=== PATIENT | female | born 1940 | race Caucasian/White ===

== ENCOUNTER 2023-12-06 14:47 | Emergency (ER) | payer MEDICARE, OTHER, SELFPAY ==
[2023-12-06 14:51] VITALS: BP 185/95
--- NOTE | 2023-12-06 16:49 | ED.GENMED ---
History of Present Illness
<Monika Dawkins PA-C - Last Filed: 12/06/23 18:34>
General
Chief Complaint: Musculo-Skeletal Complaint
Source: patient
Exam Limitations: none
Time Seen by Provider: 12/06/23 14:58
Nursing documentation reviewed up to this point in time: agreed with
History of Present Illness
History of Present Illness:
Patient is a 83-year-old female presenting to the emergency department for evaluation of right shoulder pain following mechanical fall earlier this morning. Patient states that she was walking into her garage this morning when her flip-flop got
stuck on the step and she tripped and fell striking her right shoulder on the ground. She denies any head strike or associated loss of consciousness. Patient states she did have some pain in her right shoulder which improved following 3 ibuprofen.
She was able to go to work but states that throughout the day the pain in her right shoulder lingered especially with arm movements. She came to the emergency department for further evaluation.
Patient denies any other injury sustained in the fall. No headache or neck pain. Patient denies any numbness/tingling in right upper extremity.
Past History
<Monika Dawkins PA-C - Last Filed: 12/06/23 18:34>
Past History
ED Past Medical History: None
Social History
Tobacco: Non-smoker
Living: with family
Employment: Employed
Review of Systems
<Monika Dawkins PA-C - Last Filed: 12/06/23 18:34>
Review of Systems
Allergies reviewed?: Yes
All Other Systems: ROS reviewed and negative except as documented in HPI and ROS
Phy Exam
<Monika Dawkins PA-C - Last Filed: 12/06/23 18:34>
Physical Exam
Physical Exam:
Vitals: Hypertensive, otherwise vital signs stable. Afebrile
General: Patient is well appearing, no acute distress. Nontoxic appearing
Skin: Warm and dry, no rashes or lesions
Head: Normocephalic, atraumatic
Throat: Protecting airway
Neck: Normal ROM, no cervical spine tenderness, no meningismus
Cardiac: Regular rate and rhythm, no murmurs.
Pulm: Normal respiratory effort, no wheezes, rales, rhonchi heard on exam.
Abdomen: Not distended
Extremities: Right upper extremity without any obvious deformity. No bony tenderness to right shoulder. Patient does have pain with shoulder adduction and flexion although she is able to actively abduct to 90 degrees. Increased pain with shoulder
abduction and flexion past 90 degrees. Full passive range of motion of right shoulder. No significant edema or erythema of right shoulder. Palpable right radial and brachial pulse. Sensation fully intact. Capillary refill in right upper
extremity normal for
Neuro: Grossly intact. Steady gait. Fluid speech
Psychiatric: Normal affect.
Course
<Monika Dawkins PA-C - Last Filed: 12/06/23 18:34>
Orders/Labs/Results
Orders:
Orders
12/06/23 14:55
Shoulder, Right, Trauma [CR Shoulder, Trauma - Right] Urgent
Comment:
Reason For Exam: pain
12/06/23 17:07
Sling Right-Treatment ONCE
Vital Signs
Initial and Last Documented VS:
Initial Vital Signs
Temp Pulse Resp BP Pulse Ox
98.2 F 71 20 185/95 99
12/06/23 14:51 12/06/23 14:51 12/06/23 14:51 12/06/23 14:51 12/06/23 14:51
Last Documented Vital Signs
Temp Pulse Resp BP Pulse Ox
98.2 F 71 16 167/78 97
12/06/23 14:51 12/06/23 17:28 12/06/23 17:28 12/06/23 17:28 12/06/23 17:28
<Isi Ndiaye DO - Last Filed: 12/06/23 17:19>
Orders/Labs/Results
Orders:
Orders
12/06/23 14:55
Shoulder, Right, Trauma [CR Shoulder, Trauma - Right] Urgent
Comment:
Reason For Exam: pain
12/06/23 17:07
Sling Right-Treatment ONCE
Vital Signs
Initial and Last Documented VS:
Initial Vital Signs
Temp Pulse Resp BP Pulse Ox
98.2 F 71 20 185/95 99
12/06/23 14:51 12/06/23 14:51 12/06/23 14:51 12/06/23 14:51 12/06/23 14:51
Last Documented Vital Signs
Temp Pulse Resp BP Pulse Ox
98.2 F 71 16 167/78 97
12/06/23 14:51 12/06/23 17:28 12/06/23 17:28 12/06/23 17:28 12/06/23 17:28
<Monika Dawkins PA-C - Last Filed: 12/06/23 18:34>
MDM/Problems Addressed
Differential Diagnosis Includes:
Not limited to: Shoulder sprain, rotator cuff injury, shoulder dislocation, humerus fracture, clavicle fracture.
MDM/Problems Addressed:
83-year-old female presenting with right shoulder pain following mechanical fall earlier today. No other injury sustained. No head strike or loss of consciousness. Patient with pain in right shoulder mainly with movement, adduction and flexion.
Patient did take Motrin earlier today which did help pain. Vital stable. Physical exam as above. Patient is well-appearing, in no apparent distress. No evidence of head or neck trauma. Right upper extremity without any obvious traumatic
injuries or deformity. No bony tenderness. She does have limited active range of motion in right shoulder past 90 degrees due to pain. Passive range of motion fully intact. No neurovascular compromise. No significant edema. No erythema of
right shoulder. An x-ray of the right shoulder was obtained without any evidence of fracture or dislocation. Suspect likely shoulder sprain/rotator cuff injury. Will place patient in shoulder sling and recommend orthopedic follow-up for possible
MRI if symptoms persist. Recommended ice, NSAIDs/Tylenol as needed for discomfort. Patient comfortable with plan. Patient seen with attending physician
Chronic conditions affecting care:
N/A
Acute Exacerbation and/or Progression of Chronic Illness:
N/A
<Monika Dawkins PA-C - Last Filed: 12/06/23 18:34>
*Radiology
Radiology exam reviewed: preliminary read by ED provider and radiology read reviewed
*Pulse Oximetry
Patient hypoxic: no
*EKG
Interpreted by ED Provider?: NA
*Ground Intelligence Officer Interpretation
Rate: Ground Intelligence Officer- N/A
*Critical Care Note
Total Time (30-74mins, 75-104mins- exclusive of procedures): Not Applicable
ED Attending Note
<Monika Dawkins PA-C - Last Filed: 12/06/23 18:34>
-
Portions of this chart may have been created with voice recognition software.� Occasional wrong word or��sound alike� substitutions may have occurred due to the inherent limitations of voice recognition software.
<Isi Ndiaye DO - Last Filed: 12/06/23 17:19>
ED Attending Note
Patient seen and examined by attending physician: Yes
I performed the substantive portion of visit, reviewed & personally made and approve the management plan that is documented in note by myself or DIPTI.: Yes
I performed a history and physical exam of patient and discussed management with resident, I reviewed resident's note and agree with documented findings and plan of care.: Yes
ED Attending Note:
Patient seen and examined at bedside, 83-year-old female presenting with right shoulder pain after a mechanical fall. Patient denies head injury or loss of consciousness. Patient arrives with pain to the right shoulder joint, particular with
abduction. Denies numbness or tingling. Denies any additional injuries. Does report injury to the rotator cuff in the past. Patient hypertensive on arrival.
On exam, no acute distress, no physical signs of trauma. Examination of the shoulder is relatively benign, no obvious deformity or swelling. Generalized tenderness to the shoulder joint. Patient is able to abduct to 90 degrees with active and
passive range of motion. Increased pain beyond 90 degrees. No neurovascular compromise to the extremity. No erythema or warmth or infectious findings. X-ray obtained, without fracture or malalignment. Suspect musculoskeletal injury, possible
rotator cuff injury. Feel stable for discharge with outpatient supportive therapy orthopedic follow-up, may need MRI if symptoms persist for rule out rotator cuff tear. Return precautions discussed patient verbalized understanding
Discharge Plan
Departure
Patient Disposition: Home (Routine Discharge)
Date of Disposition: 12/06/23
Time of Disposition: 17:07
Patient with high blood pressure during this ER visit?: Yes
Condition: Good
Covid-19: Not Applicable
Discharge Problem:
Injury of shoulder, right
Instructions: Shoulder Sprain (DC), BLOOD PRESSURE
Prescriptions:
No Action
hydrocodone-acetaminophen 5 MG/500 MG tablet
1 tab PO Q6HPRN PRN (Reason: hand pain) Qty: 5 0RF
Referrals:
Grant Shaw MD [Active] - Next open appointment
Angeline Grimm CRNP [Family Provider] -
Activity Restrictions/Additional Instructions:
RETURN TO THE EMERGENCY DEPARTMENT WITH ANY SEVERE SHOULDER PAIN, NUMBNESS/TINGLING IN RIGHT UPPER EXTREMITY, CHEST PAIN, SHORTNESS OF BREATH, WORSENING IN CURRENT SYMPTOMS, OR ANY OTHER CONCERNS
-As discussed�your x-ray in the emergency department showed no evidence of acute fracture or dislocation of your shoulder.
-You should keep your shoulder in the sling provided for support although be sure to immobilize your shoulder throughout the day to prevent frozen shoulder. You can take Tylenol and/or Motrin as needed for discomfort. You should apply ice to the
shoulder.
-Follow-up with orthopedics for further evaluation/management. You may require further imaging.
Monitor your symptoms closely and return to the emergency department with any acute worsening/new symptoms
Interventions
Interventions:
*Risk Screen - Suicide Last Done: 12/06/23 16:50
*General Assessment Last Done: 12/06/23 16:50
*Neglect/Abuse Screening Last Done: 12/06/23 16:50
ED- Fall Risk Assessment Last Done: 12/06/23 17:29
*ED COVID-19 Vaccine History Last Done: 12/06/23 16:50
*Nursing Disposition Last Done: 12/06/23 17:29
ED-Musculoskeletal Assessment Last Done: 12/06/23 16:51
Discharge Date and Time
Discharge Date/Time: 12/06/23 17:29
Print Language: CITIZEN OF [place]
[2023-12-06 17:28] VITALS: BP 167/78
== END 2023-12-06 17:29 | disposition home or self-care (01) ==
LOC: EMR 14:47
PROVIDERS: EMERGENCY PHYSICIAN Student in an Organized Health Care Education/Training Program; FAMILY PHYSICIAN Nurse Practitioner
DX: S49.91XA Unspecified injury of right shoulder and upper arm, initial encounter (principal); W01.0XXA Fall on same level from slipping, tripping and stumbling without subsequent striking against object, initial encounter; R03.0 Elevated blood-pressure reading, without diagnosis of hypertension
CPT/HCPCS: 99283; 73030

== ENCOUNTER → 2023-12-21 07:09 | Outpatient (REF) | payer MEDICARE, OTHER, SELFPAY | LOC: MRI 3T 07:09 | PROVIDERS: ATTENDING PHYSICIAN Orthopaedic Surgery; FAMILY PHYSICIAN Nurse Practitioner | DX: M25.511 Pain in right shoulder (principal) | CPT/HCPCS: 73221 ==

== ENCOUNTER → 2024-03-14 09:12 | Outpatient (REF) | payer MEDICARE, OTHER, SELFPAY ==
[2024-03-14 09:59] LABS: % Basophils 1.1 % (0-2); % Eosinophils 4.1 % (0-6); % Immature Granulocytes 0.2 % (0-0.5); % Lymphocytes 32.3 % (20.5-51.1); % Monocytes 10.2 % (1.7-9.3); % Neutrophils 52.1 % (42.2-75.2); Absolute Basophils 0.1 10^3/uL (0-0.2); Absolute Eosinophils 0.2 10^3/uL (0-0.7); Absolute Lymphocytes 1.7 10^3/uL (1.2-3.4); Absolute Monocytes 0.5 10^3/uL (0.1-0.6); Absolute Neutrophils 2.8 10^3/uL (1.4-6.5); Mean Corp Hgb Conc. 34.1 g/dL (33.0-37.0); Mean Corpuscular Hgb 33.8 pg (27.0-31.0); Mean Corpuscular Volume 99.1 fL (81.0-99.0); Mean Platelet Volume 11.7 fL (7.4-10.4); Nucleated Red Blood Cells % 0 %; Platelet Count 255 10^3/uL (130-400); Red Blood Cell Count 4.44 10^6/uL (4.20-5.40); Red Cell Dist. Width 12.6 % (11.5-14.5); White Blood Cell Count 5.3 10^3/uL (4.8-10.8)
[2024-03-14 10:28] LABS: ALT (SGPT) 30 U/L (0-35); AST (SGOT) 30 U/L (14-36); Albumin 5.1 g/dl (3.5-5.0); Alkaline Phosphatase 65 U/L (38-126); Blood Urea Nitrogen 16 mg/dl (7-17); Calcium 10.3 mg/dl (8.4-10.2); Carbon Dioxide 28 mmol/L (22-30); Chloride 101 mmol/L (98-107); Glucose 89 mg/dl (70-99); HDL Cholesterol 79 mg/dl; LDL Cholesterol, Calculated 184 mg/dl; Potassium 4.3 mmol/L (3.5-5.1); Sodium 142 mmol/L (135-145); Total Bilirubin 1.3 mg/dl (0.2-1.3); Total Cholesterol 299 mg/dl (50-199); Total Protein 7.9 g/dl (6.3-8.2); Triglyceride 183 mg/dl (10-149); Very Low Density Lipoprotein 36 mg/dl (0-30); eGFR > 60.00
[2024-03-14 11:27] LABS: Intact PTH 41.3 pg/ml (13.6-85.8)
[2024-03-14 12:00] LABS: TSH 3.12 uIU/ml (0.47-4.68)
== END ==
LOC: REG 09:12
PROVIDERS: ATTENDING PHYSICIAN Nurse Practitioner
DX: E34.9 Endocrine disorder, unspecified (principal); E78.2 Mixed hyperlipidemia; R53.83 Other fatigue
CPT/HCPCS: 36415; 80053; 80061; 83970; 84443; 85025